=== PATIENT | male | born 1990 | race Two or more races ===

== ENCOUNTER 2017-01-27 17:02 | Emergency (ER) | payer MEDICAID ==
[~2017-01-27] VITALS: Ht 170.2 cm; Wt 68.0 kg
[2017-01-27 17:12] VITALS: BP 125/82
== END 2017-01-27 20:05 | disposition left against medical advice (07) ==
LOC: ER 17:04
DX: M54.5 Low back pain (principal); J45.909 Unspecified asthma, uncomplicated